=== PATIENT | female | born 1940 | race Caucasian/White ===

== ENCOUNTER → 2016-10-12 | Outpatient (CLI) | payer MEDICARE, BC ==
[~2016-10-12] MED LIST: ACIPHEX20 MG PO; ALBUTEROL17 GM INH; AMLODIPINE BESYL5 MG PO; ASPIRIN81 M2 PO; BENZONATATE PO; DELTASONE20 MG PO; FERROUS GLUCON325 M1 PO; LIPITOR20 MG PO; LISINOPRIL10 MG PO; LORTAB 7.5-5001 TAB PO; LORTAB 7.51 TAB 7.5/ PO; OMEPRAZOLE20 M2 PO; PRILOSEC20 M1 PO; SERTRALINE HCL50 M1 PO; ZITHROMAX PO
--- NOTE | ~2016-10-12 | US37 ---
[facility] A Service [facility] RADIOLOGY TEXT RESULTS PATIENT: DENISE MALONE LOCATION: CNIV : 39 UNIT #: [id number] AGE: [address]: Delfino Nur MD SEX: F ORDER DR: [id number] [facility] [address] [place], [place] [address] [id number] O MR#: [id number] Acc #: [id number] NAME: DENISE MALONE : 1940 SEX: F STUDY DATE/TIME: 10/12/2016 10:24 UNIT: CNIV ROOM: STUDY DESCRIPTION: US Carotid W/Doppler Bilateral Attending Physician: Delfino Nur M.D. Referring Physician: Delfino Nur M.D. Ordering Physician: Delfino Nur M.D. Primary Care Physician: Mariam Segura A.P.R.N. MEDICAL IMAGING REPORT This report is preliminary unless electronic signature is present EXAM Bilateral carotid Duplex HISTORY Carotid stenosis status post right carotid endarterectomy. FINDINGS Duplex imaging of the carotid arteries was performed. The right common carotid artery is patent. Right internal carotid artery is patent post endarterectomy without any plaque or stenosis. Velocity in the right common carotid is 109, internal is 86, external is 140 cm/sec. Right ICA/CCA ratio is 0.8. On the left side, the common carotid artery is patent. Mild plaque is seen in the left internal carotid artery at the origin. Velocity in the left common carotid is 101, internal is 70, and external is 124 cm/sec. Left ICA/CCA ratio is 0.8. Antegrade flow is seen in the right and left vertebral arteries. IMPRESSION 1. Normal appearance of the right internal carotid artery post endarterectomy. 2. Less than 50% stenosis is seen in the left internal carotid artery. 3. Antegrade flow is seen in the right and left vertebral arteries. Dictated by... Delfino Nur M.D. [facility] A Service [facility] RADIOLOGY TEXT RESULTS PATIENT: DENISE MALONE LOCATION: CNIV : 39 UNIT #: [id number] AGE: [address]: Delfino Nur MD SEX: F ORDER DR: THIS IS AN ELECTRONICALLY VERIFIED REPORT Delfino Nur M.D. at 10/17/2016 10:00 AM [place] TD: 10/13/2016 15:03 JOB #: [id number] MEDICAL IMAGING REPORT Page 1 of 1 COPY
== END | disposition home or self-care (01) ==
LOC: CNIV 09:55
DX: I65.23 Occlusion and stenosis of bilateral carotid arteries (principal)
CPT/HCPCS: 93880